=== PATIENT | female | born 1980 | race American Indian/Alaskan Native ===

== ENCOUNTER 2016-12-01 16:20 | Inpatient (IN) | payer OTHER ==
--- NOTE | 2016-12-01 17:06 | Emergency Department Report ---
Chief Complaint: Dyspnea/Respdistress Stated Complaint: SOB,CHEST PAIN Time Seen by Provider: 12/01/16 17:02 - HPI History of Present Illness: PT sttes her eyes were red at work and the nurses at work checked her blood pressure and it was 127/96. PT states she was told her bp was abnormal and she called her PCP. PT states she was advised to go to ED or UC. PT states she was seen at UC And sent to the ED due to having more symptoms over the weekend. - ROS Review of Systems: + chest pain + sob + ohara + nose bleed - Exam Vital Signs: Vital Signs 12/01/16 16:50 Temperature 98.2 F Pulse Rate 75 Respiratory 18 Rate Blood Pressure 128/73 O2 Sat by Pulse 100 Oximetry Physical Exam: PT is alert and appropriate gcs 15 + photophobia, conjunctiva wnl MSE screening note: Focused history and physical exam performed. Due to findings the following was ordered: rn placed orders ED Disposition for MSE Condition: Stable
--- NOTE | 2016-12-01 17:31 | Cat Scan Report ---
FINAL REPORT EXAM: CT HEAD/BRAIN WO CON HISTORY: neuro deficits \T\lt; 6hrs or sx present upon awakening TECHNIQUE: Standard unenhanced CT of the head at 5.0 millimeter axial increments PRIORS: None. FINDINGS: The ventricular system is normal in size and configuration. There is no evidence for parenchymal volume loss. There is no evidence for mass lesion, mass effect, midline shift, acute intracranial hemorrhage, or acute ischemia/ infarction. Visualized paranasal sinuses are clear. IMPRESSION: Negative CT of the head. No acute intracranial process noted.
[2016-12-02 05:06] LABS: Anion Gap 16 mmol/L; Blood Urea Nitrogen 8 mg/dL (7-17); Calcium 9.4 mg/dL (8.4-10.2); Carbon Dioxide 26 mmol/L (22-30); Glucose 91 mg/dL (65-100); Potassium 3.5 mmol/L (3.6-5.0); Sodium 137 mmol/L (137-145)
[2016-12-02 05:11] LABS: Basophils % (Auto) 1.4 % (0.0-1.8); Eosinophils % (Auto) 0.7 % (0.0-4.3); Hematocrit 35.8 % (30.3-42.9); Hemoglobin 12.2 gm/dl (10.1-14.3); Mean Corpuscular HGB Conc 34 % (30-34); Mean Corpuscular Hemoglobin 33 pg (28-32); Mean Corpuscular Volume 96 fl (79-97); Platelet Count 163 K/mm3 (140-440); Red Blood Count 3.74 M/mm3 (3.65-5.03); Red Cell Distribution Width 14.1 % (13.2-15.2); White Blood Count 3.3 K/mm3 (4.5-11.0)
[2016-12-02 05:21] LABS: INR 1.09 (0.87-1.13); Partial Thromboplastin Time 29.5 Sec. (24.2-36.6)
[2016-12-02] MEDS ORDERED: ZOFRAN IV ONE (06:52)
[2016-12-02] MEDS ORDERED: ASPIRIN PO ONE (06:52)
[2016-12-02] MEDS ORDERED: NITRO-BID 2% TP ONE (06:52)
[2016-12-02] MEDS ORDERED: MORPHINE IV ONE (06:52)
--- NOTE | 2016-12-02 06:57 | Emergency Department Report ---
HPI - General Chief Complaint: Dyspnea/Respdistress Time Seen by Provider: 12/01/16 17:02 - [facility] HPI: Room 6 The patient is a 36-year-old female presenting with a chief complaint of chest pain headache. The patient states approximately 5 days ago she developed a frontal and occipital headache in addition to substernal chest pain. The patient describes chest pain as sharp and stabbing in nature. Patient states the pain has been intermittent and associated with shortness of breath. The patient admits to dyspnea on exertion and orthopnea. Patient denies a history of cough or fever. The patient states she contacted her primary physician who in turn instructed her to come to the hospital for care. The patient went to an urgent care facility then was sent to the ED for a CAT scan. The patient states she's never had a stress test or cardiac catheterization Location: Head, chest Duration: [see above] Quality: Sharp Severity: Moderate Modifying factors: [see above] Context: [see above] Mode of transportation: The patient drove herself to the emergency department but agrees to be admitted to the hospital ED Past Medical Hx - Past Medical History Previous Medical History?: Yes Hx Headaches / Migraines: Yes Additional medical history: Lupus, Nosebleed - Surgical History Past Surgical History?: Yes Additional Surgical History: Breast reduction - Family History Family history: no significant - Social History Smoking Status: Current Every Day Smoker (one cigar daily) Substance Use Type: None (denies illicit drug use), Alcohol (occasional) - Medications Home Medications: Home Medications Medication Instructions Recorded Confirmed Last Taken Type HYDROcodone/APAP 5-325 [Breeden 1 each PO Q6HR PRN #14 tablet 09/17/13 Unknown Rx 5/325 mg] Acetaminophen/Codeine 1 tab PO Q6H PRN #10 tab 04/17/14 Unknown Rx [Acetaminophen-Codeine #3 TAB] Ondansetron [Zofran Odt] 4 mg PO Q6H #10 tab.rapdis 04/17/14 Unknown Rx ED Review of Systems ROS: Stated complaint: SOB,CHEST PAIN Other details as noted in HPI Comment: All other systems reviewed and negative Constitutional: denies: chills, fever Eyes: denies: eye pain, eye discharge, vision change ENT: denies: ear pain, throat pain Respiratory: orthopnea, shortness of breath, SOB with exertion Cardiovascular: chest pain, dyspnea on exertion Endocrine: no symptoms reported Gastrointestinal: denies: abdominal pain, nausea, diarrhea Genitourinary: denies: urgency, dysuria, discharge Musculoskeletal: denies: back pain, joint swelling, arthralgia Skin: denies: rash, lesions Neurological: headache Psychiatric: denies: anxiety, depression Hematological/Lymphatic: denies: easy bleeding, easy bruising Physical Exam - Physical Exam Vital Signs: Vital Signs 12/01/16 12/02/16 12/02/16 16:50 00:25 03:27 Temperature 98.2 F 98.6 F Pulse Rate 75 85 74 Respiratory 18 18 8 L Rate Blood Pressure 128/73 120/79 Blood Pressure 125/86 [Right] O2 Sat by Pulse 100 100 100 Oximetry Physical Exam: GENERAL: The patient is well-developed well-nourished female lying on stretcher not appearing to be in acute distress. Last is in place HEENT: Normocephalic. Atraumatic. Extraocular motions are intact. Patient has moist mucous membranes. NECK: Supple. No meningitic signs are noted. Trachea midline CHEST/LUNGS: Clear to auscultation. There is no respiratory distress noted. HEART/CARDIOVASCULAR: Regular. There is no tachycardia. There is no gallop rub or murmur. ABDOMEN: Abdomen is soft, nontender. Patient has normal bowel sounds. There is no abdominal distention. SKIN: There is no diaphoresis. NEURO: The patient is awake, alert, and oriented. The patient is cooperative. The patient has no focal neurologic deficits. The patient has normal speech. Cranial nerves II through XII grossly intact, no drift MUSCULOSKELETAL: There is no evidence of acute injury. ED Course Vital Signs 12/01/16 12/02/16 12/02/16 16:50 00:25 03:27 Temperature 98.2 F 98.6 F Pulse Rate 75 85 74 Respiratory 18 18 8 L Rate Blood Pressure 128/73 120/79 Blood Pressure 125/86 [Right] O2 Sat by Pulse 100 100 100 Oximetry ED Medical Decision Making - Lab Data Result diagrams: 12/02/16 04:29 12/02/16 04:29 Laboratory Tests 12/02/16 12/02/16 12/02/16 04:29 04:29 04:29 WBC 3.3 L RBC 3.74 Hgb 12.2 Hct 35.8 MCV 96 MCH 33 H MCHC 34 RDW 14.1 Plt Count 163 Lymph % (Auto) 38.6 H [place] % (Auto) 9.4 H Eos % (Auto) 0.7 Baso % (Auto) 1.4 Lymph # 1.3 [place] # 0.3 Eos # 0.0 Baso # 0.0 Seg Neutrophils % 49.9 Seg Neutrophils # 1.6 L PT 14.0 INR 1.09 APTT 29.5 Thrombin Time D-Dimer Sodium 137 Potassium 3.5 L Chloride 99.0 Carbon Dioxide 26 Anion Gap 16 BUN 8 Creatinine 0.5 L Estimated GFR > 60 BUN/Creatinine Ratio 16.00 Glucose 91 Calcium 9.4 Troponin T < 0.010 12/02/16 12/02/16 04:29 04:29 WBC RBC Hgb Hct MCV MCH MCHC RDW Plt Count Lymph % (Auto) [place] % (Auto) Eos % (Auto) Baso % (Auto) Lymph # [place] # Eos # Baso # Seg Neutrophils % Seg Neutrophils # PT INR APTT Thrombin Time 17.1 D-Dimer 142.86 Sodium Potassium Chloride Carbon Dioxide Anion Gap BUN Creatinine Estimated GFR BUN/Creatinine Ratio Glucose Calcium Troponin T - EKG Data -: EKG Interpreted by Me EKG shows normal: sinus rhythm Rate: normal - EKG Data When compared to previous EKG there are: previous EKG unavailable Interpretation: normal EKG (no ischemic changes seen) - Radiology Data Radiology results: report reviewed (CT head), image reviewed (CT head, chest x- ray) interpreted by me: Chest x-ray-no focal infiltrates, no pneumothorax CT head (read by radiologist)-no acute abnormalities - Differential Diagnosis migraine, ICH, ACS, PE, pericarditis, GERD Critical care attestation.: If time is entered above; I have spent that time in minutes in the direct care of this critically ill patient, excluding procedure time. ED Disposition Clinical Impression: Chest pain, Headache Disposition: OP ADMIT IP TO THIS HOSP Is pt being admited?: Yes Does the pt Need Aspirin: Yes Condition: Fair Instructions: Chest Pain (ED) Referrals: [facility] DR BRANHAM [Other] - 3-5 Days Time of Disposition: 07:20 (hospitalist paged)
--- NOTE | 2016-12-02 07:39 | XRay Report ---
ROUTINE CHEST, TWO VIEWS: HISTORY: chest pain. The trachea, heart, mediastinal contour, lung farmer and bony thorax are unremarkable. IMPRESSION: Unremarkable chest x-ray.
--- NOTE | 2016-12-02 07:57 | Admit Criteria Form ---
Admission Criteria Documentation: CARDIOLOGY GRG Clinical Indications for Admission to Inpatient Care ( Place 'X' for any and all applicable criteria): Hospital admission is needed for appropriate care of the patient because of ANY ONE of the following (1): [ ] I. Hemodynamic instability as indicated by ALL of the following (1)(2)(3) (4)(5) [ ]a) Vital signs or other findings not as expected for chronic patient condition or baseline [ ]b) Instability indicated by ANY ONE of the following: [ ]i) Hypotension [ ]ii) Symptomatic Tachycardia unresponsive to treatment ( e.g., analgesia, fluids, sedation as indicated) [ ]iii) Inadequate perfusion indicated by ANY ONE of the following: [ ] 1) Lactic acidosis (> 2 mmol/L) [ ] 2) New abnormal capillary refill (> 3 seconds) [ ] 3) Reduced urine output [ ] 4) New altered mental status [ ]iv) Orthostatic vital sign changes unresponsive to treatment (e.g., fluids) [ ]v) IV inotropic or vasopressor medication required to maintain adequate blood pressure or perfusion [ ] II. Severe heart failure as indicated by ANY ONE of the following(17)(18) [ ]a) Respiratory distress [ ]b) Hypotension [ ]c) Anasarca (refractory to outpatient therapy) [ ]d) Cardiac arrhythmias of immediate concern [ ]e) Myocardial ischemia [ ] III. Cardiac arrhythmias or findings of immediate concern indicated by ANY ONE of the following (19)(20): [ ] a) Heart rhythms that are inherently dangerous or unstable indicated by ANY ONE of the following (21)(22)(23): [ ] i) Resuscitated ventricular fibrillation or cardiac arrest [ ] ii) Ventricular escape rhythm [ ] iii) Sustained ventricular tachycardia (30 seconds or more of ventricular rhythm at greater than 100 beats per minute) [ ] iv) Nonsustained ventricular tachycardia and ANY ONE of the following: [ ] 1) Suspected cardiac ischemia as cause or consequence of ventricular tachycardia [ ] 2) In setting of acute myocarditis [ ] b) Unstable cardiac conduction defects indicated by ANY ONE of the following(23)(24)(25) [ ] i) Type II second-degree atrioventricular block [ ]ii) Third-degree atrioventricular block [ ]iii) New-onset left bundle branch block with suspected myocardial ischemia [ ]c) Any heart rhythm and ANY ONE of the following (21)(22)(26)(27) (28) [ ] i) Continuous long-term ECG monitoring needed (e.g., initiation of drug requiring monitoring for more than 24 hours) [ ] ii) Patient has automatic implanted cardioverter defibrillator that is repeatedly firing, malfunctioning, or in need of immediate adjustment of settings beyond the scope of ambulatory or observation care [ ]d) Heart rhythms of concern due to ANY ONE of the following: [ ] i) Hypotension [ ] ii) Respiratory distress [ ] iii) Association with other significant symptoms (e.g., bradycardia with syncope or ongoing dizziness, supraventricular tachycardia with chest pain (14)(15)(17) [ ] IV. Monitoring for cardiac contusion beyond the scope of observation care needed [A](30)(31)(32) [ ] V. Surgical or device complication (e.g., valve replacement complication , pacemaker dysfunction) (35)(41)(44)(45)(46) [ ] . Inpatient palliative care needed. [B](49) Also use Inpatient Palliative Care Criteria [ ] VII. Nonbacterial thrombotic (marantic) endocarditis (36)(43)(47)(48) [X] VIII. Cardiology condition, symptom, or finding for which emergency and observation care has failed or are not considered appropriate. [ ] IX. Acute valvular disease requiring inpatient as indicated by ANY ONE of the following (41) [ ]a) Acute valvular regurgitation (42) [ ]b) Noninfectious valvulitis (43) [ ]c) Obstructive valve thrombosis [ ]d) Paravalvular leak [ ]e) Other significant valvular disorder remaining after emergency or observation level of care (as appropriate) [ ]X. Pericardial disease requiring inpatient treatment as indicated by ANY ONE of the following (33)(34)(35)(36)(37) [ ]a) Suspected tamponade (38)(39)(40) [ ]b) Hemopericardium [ ]c) Other significant pericardial disorder remaining after emergency or observation level of care (as appropriate) [ ] XI. Cardiac ischemia beyond scope of emergency and observation care. [ ] XII. Hypertension requiring inpatient treatment as indicated by ANY ONE of the following (6)(7)(8) [ ]a) SBP greater than 220 mm Hg or DBP greater than 120 mmHg despite treatment [ ]b) SBP greater than 140 mm Hg or DBP greater than 100 mm Hg with evidence of acute end organ damage as indicated by ANY ONE of the following [ ] i) Altered mental status [ ] ii) Acute renal failure as indicated by new onset of ANY ONE of the following (9)(10)(11)(12)(13) [ ]1) 3-fold rise in serum creatinine from baseline [ ]2) Serum creatinine greater than 4 mg/dL ( 354 micromoles/L) with acute rise greater than 0.5 mg/dL (44.2 micromoles/L) [ ]3) Reduction of more than 75% in estimated glomerular filtration rate from baseline [ ]4) Estimated glomerular filtration rate less than 35 mL/min/1.73m2 (0.59 mL/sec/1.73m2) in child up to 18 years of age [ ]5) Cessation of urine output indicated by ALL of the following [ ]A. Adequate volume status [ ]B. Inadequate urine output as indicated by ANY ONE of the following [ ]a. Urine output less than 0.3 mL/kg/hr for 24 hours [ ]b. Anuria (urine output less than 0.1 mL/kg/hr) for 12 hours [ ] iii) Aortic dissection [ ] iv) Myocardial Ischemia [ ] v) Left ventricular heart failure [ ]vi) Retinal Hemorrhage [ ]vii) Other significant finding [ ]c) Hypertension in child requiring inpatient treatment as indicated by ALL of the following(14)(15)(16) [ ] i) Outpatient treatment not effective, not available, or not appropriate [ ]ii) SBP or DBP greater than 95th percentile for age [ ]iii) Evidence of acute end organ damage as indicated by ANY ONE of the following [ ]1) Altered mental status [ ]2) Acute renal failure as indicated by new onset of ANY ONE of the following(9)(10)(11)(12)(13) [ ]A. 3-fold rise in serum creatinine from baseline [ ]B. Serum creatinine greater than 4 mg/dL (354 micromoles/L) with acute rise greater than 0.5 mg/dL (44.2 micromoles/L) [ ]C. Reduction of more than 75% in estimated glomerular filtration rate from baseline [ ]D. Estimated glomerular filtration rate less than 35 mL/min/1.73m2 (0.59 mL/sec/1.73m2) in child up to 18 years of age [ ]E. Cessation of urine output indicated by ALL of the following [ ]a. Adequate volume status [ ]b. Inadequate urine output as indicated by ANY ONE of the following [ ]i) Urine output less than 0.3 mL/kg/hr for 24 hours [ ]ii) Anuria ( urine output less than 0.1 mL/kg/hr) for 12 hours [ ]3) Severe headache [ ]4) Visual disturbance [ ]5) Retinal hemorrhage [ ]6) Other significant finding [ ]XIII. Complications of transplanted heart indicated by ANY ONE of the following(61): [ ]a) Acute graft rejection requiring inpatient management (eg, intravenous immunosuppression)(62)(63) [ ]b) Acute graft heart failure indicated by ANY ONE of the following(64): [ ]i) Hemodynamic instability [ ]ii) Cardiac arrhythmias of immediate concern [ ]iii) Pulmonary edema that is very severe (eg, mechanical ventilation needed, imminent or likely, need for 100% oxygen to keep oxygen saturation above 90%) [ ]iv) Pulmonary edema that is persistent as indicated by ALL of the following: [ ]1) New need for oxygen therapy to keep oxygen saturation above 90% (or increased FiO2 need from baseline) [ ]2) Has not improved sufficiently with emergency department or observation care IV diuretics or other heart failure treatments[E] [ ]v) Altered mental status that is severe or persistent [ ]vi) Increased creatinine (new on laboratory test) with reduction of more than 50% in estimated glomerular filtration rate from baseline [ ]vii) Progressively (ongoing) rising creatinine (known from past laboratory test) with reduction of more than 25% in estimated glomerular filtration rate from baseline [ ]viii) Acute renal failure [ ]ix) Acute peripheral ischemia (eg, examination shows pulseless, cool, mottled, or cyanotic extremity) [ ]x) Pulmonary artery catheter monitoring needed [ ]xi) Other sign or symptom of heart failure requiring inpatient treatment (ie, too severe or not responsive to outpatient and observation care treatment) [ ]c) Infection requiring inpatient management (eg, Hemodynamic instability, need for intravenous antimicrobial treatment)(66)(67)(68)(69)(70) [ ]d) Cardiac allograft vasculopathy requiring inpatient management ( eg evidence of cardiac ischemia)(71) [ ]e) Other complication of transplanted heart (eg, stroke, severe pulmonary hypertension, severe valvular dysfunction) requiring inpatient management(72) The original [facility] [employer] content created by [employer] has been revised. The portions of the content which have been revised are identified through the use of italic text or in bold, and [facility] has neither reviewed nor approved the modified material. All other unmodified content is copyright [facility] [employer]. Please see references footnoted in the original [facility] [employer] edition 2016 Admission Criteria Met: Yes
[2016-12-02] MEDS ORDERED: TYLENOL PO PRN (08:03)
[2016-12-02] MEDS ORDERED: ZOFRAN IV PRN (08:03)
[2016-12-02] MEDS ORDERED: DULCOLAX PR PRN (08:03)
[2016-12-02] MEDS ORDERED: MORPHINE IV PRN (08:09)
--- NOTE | 2016-12-02 08:10 | History and Physical Report ---
<AARON BARNEY - Last Filed: 12/02/16 14:04> History of Present Illness Date of examination: 12/02/16 Date of admission: 12/02/2016 Chief complaint: Headaches and chest pain History of present illness: Patient is a 36-year-old -Monegas[place] female with past medical history of lupus who presenting with a chief complaint of chest pain and headache. patient The patient states approximately 4-5 days ago she developed chest pain and a frontal and occipital headache. She describe the pain is substernal and she also feels it under the left side of her chest in the midclavicular region; She describes the quality as a chest tightness/stabbing and radiated to her back. It has been a constant pain since it Thursday (11/29/16) evening. At first, she felt a stabbing pain that was 9/10 but eventually it became more crampy and is crampy and is currently 1/10 in the ED after SL Nitro x 2 and ASA (325 mg) and Morphine 2mg. There is no exacerbating or relieving factors. Her discomfort was accompanied by shortness of breath, dizziness, lightheadedness but denies sweating, nausea, or vomiting. Patient denies a history of cough or fever. The patient states she contacted her primary physician who in turn instructed her to come to the hospital for care. The patient went to an urgent care facility then was sent to the ED for a CAT scan. Past History Past Medical History: other (Lupus) Past Surgical History: No surgical history Social history: no significant social history, lives with family Family history: CAD, hypertension Medications and Allergies Allergies Allergy/AdvReac Type Severity Reaction Status Date / Time No Known Allergies Allergy Verified 12/02/16 08:11 Home Medications Medication Instructions Recorded Confirmed Last Taken Type Famotidine [Pepcid] 20 mg PO DAILY #30 tablet 12/02/16 Unknown Rx predniSONE [Deltasone] 20 mg PO QDAY #10 tab 12/02/16 Unknown Rx traMADol [Ultram] 50 mg PO Q6HR PRN #30 tablet 12/02/16 Unknown Rx Active Meds: Active Medications Acetaminophen (Tylenol) 650 mg PO Q4H PRN PRN Reason: Pain MILD(1-3)/Fever >100.5/ORR Bisacodyl (Dulcolax) 10 mg VT QDAY PRN PRN Reason: Constipation unrelieved by MOM Enoxaparin Sodium (Lovenox) 40 mg SUB-Q QDAY [facility] Morphine Sulfate (Morphine) 2 mg IV Q4H PRN PRN Reason: Pain, Moderate (4-6) Ondansetron HCl (Zofran) 4 mg IV Q4H PRN PRN Reason: N/V unrelieved by Reglan Review of Systems Constitutional: no weight loss, no weight gain, no fever, no chills, no sweats, no night sweats Ears, nose, mouth and throat: no ear pain, no ear discharge, no tinnitis, no decreased hearing Breasts: no normal, no change in shape, no swelling Cardiovascular: chest pain, orthopnea, lightheadedness, shortness of breath, no palpitations, no rapid/irregular heart beat, no edema, no syncope Respiratory: no cough, no cough with sputum, no excessive sputum Gastrointestinal: no nausea, no vomiting, no diarrhea Genitourinary Female: no dysmenorrhea, no pelvic pain, no menorrhagia, no dysuria, no urinary frequency, no urgency Menstruation: no currently menstrual, no premenarcheal, no post hysterectomy, no ammenorrhea, no ammenorrhea on BC Rectal: no incontinence, no bleeding Musculoskeletal: no neck stiffness, no neck pain, no shooting arm pain Integumentary: no rash, no pruritis Neurological: no head injury, no transient paralysis, no paralysis, no weakness , no parathesias Psychiatric: no anxiety, no memory loss, no change in sleep habits, no sleep disturbances Endocrine: no cold intolerance, no heat intolerance, no polyphagia, no excessive thirst Hematologic/Lymphatic: no easy bruising, no easy bleeding Allergic/Immunologic: no urticaria, no allergic rhinitis Exam - Constitutional Vitals: Temp Pulse Resp BP Pulse Ox 98.6 F 75 22 106/68 100 12/02/16 00:25 12/02/16 07:57 12/02/16 07:30 12/02/16 07:55 12/02/16 07:00 General appearance: Present: no acute distress - EENT Eyes: Present: PERRL ENT: hearing intact - Neck Neck: Present: supple - Respiratory Respiratory effort: normal Respiratory: bilateral: CTA - Extremities Extremities: no ischemia Peripheral Pulses: within normal limits - Abdominal General gastrointestinal: Present: soft, non-tender Female genitourinary: Present: normal - Rectal Rectal Exam: deferred - Integumentary Integumentary: Present: clear, warm, dry - Musculoskeletal Musculoskeletal: strength equal bilaterally - Psychiatric Psychiatric: appropriate mood/affect - Neurologic Neurologic: CNII-XII intact - Allied Health Allied health notes reviewed: nursing Results - Labs CBC & Chem 7: 12/02/16 04:29 12/02/16 04:29 Labs: Laboratory Last Values WBC 3.3 K/mm3 (4.5-11.0) L 12/02/16 04:29 RBC 3.74 M/mm3 (3.65-5.03) 12/02/16 04:29 Hgb 12.2 gm/dl (10.1-14.3) 12/02/16 04:29 Hct 35.8 % (30.3-42.9) 12/02/16 04:29 MCV 96 fl (79-97) 12/02/16 04:29 MCH 33 pg (28-32) H 12/02/16 04:29 MCHC 34 % (30-34) 12/02/16 04:29 RDW 14.1 % (13.2-15.2) 12/02/16 04:29 Plt Count 163 K/mm3 (140-440) 12/02/16 04:29 Lymph % (Auto) 38.6 % (13.4-35.0) H 12/02/16 04:29 [place] % (Auto) 9.4 % (0.0-7.3) H 12/02/16 04:29 Eos % (Auto) 0.7 % (0.0-4.3) 12/02/16 04:29 Baso % (Auto) 1.4 % (0.0-1.8) 12/02/16 04:29 Lymph # 1.3 K/mm3 (1.2-5.4) 12/02/16 04:29 [place] # 0.3 K/mm3 (0.0-0.8) 12/02/16 04:29 Eos # 0.0 K/mm3 (0.0-0.4) 12/02/16 04:29 Baso # 0.0 K/mm3 (0.0-0.1) 12/02/16 04:29 Seg Neutrophils % 49.9 % (40.0-70.0) 12/02/16 04:29 Seg Neutrophils # 1.6 K/mm3 (1.8-7.7) L 12/02/16 04:29 PT 14.0 Sec. (12.2-14.9) 12/02/16 04:29 INR 1.09 (0.87-1.13) 12/02/16 04:29 APTT 29.5 Sec. (24.2-36.6) 12/02/16 04:29 Thrombin Time 17.1 Sec. (15.1-19.6) 12/02/16 04:29 D-Dimer 142.86 ng/mlDDU (0-234) 12/02/16 04:29 Sodium 137 mmol/L (137-145) 12/02/16 04:29 Potassium 3.5 mmol/L (3.6-5.0) L 12/02/16 04:29 Chloride 99.0 mmol/L (98-107) 12/02/16 04:29 Carbon Dioxide 26 mmol/L (22-30) 12/02/16 04:29 Anion Gap 16 mmol/L 12/02/16 04:29 BUN 8 mg/dL (7-17) 12/02/16 04:29 Creatinine 0.5 mg/dL (0.7-1.2) L 12/02/16 04:29 Estimated GFR > 60 ml/min 12/02/16 04:29 BUN/Creatinine Ratio 16.00 % 12/02/16 04:29 Glucose 91 mg/dL (65-100) 12/02/16 04:29 Calcium 9.4 mg/dL (8.4-10.2) 12/02/16 04:29 Troponin T < 0.010 ng/mL (0.00-0.029) 12/02/16 04:29 Assessment and Plan Assessment and plan: Patient is a 36-year-old -[place]onegas[place] female with past medical history of lupus who presenting with a chief complaint of chest pain and headache. patient The patient states approximately 4-5 days ago she developed chest pain and a frontal and occipital headache. normal EKG (no ischemic changes seen) Chest x-ray-no focal infiltrates, no pneumothorax, CT head no acute abnormalities. ASSESSMENT/PLAN Chest pain We will admit to telemetry floor 12-lead EKG obtained we will also get another EKG in order for any changes that have taken since the first obtained We will do cardiac enzymes and follow cardiac enzyme troponin IV fluid hydration Stress test ordered Headache CT of the head shows no acute intracranial process Pain control with morphine Lupus We will resume home by mouth steroid pill Discussed the patient to follow up with her primary provider as outpatient. DVT prophylaxis Lovenox <KATY ALMENDAREZ - Last Filed: 12/07/16 07:56> History of Present Illness Date of admission: 12/02/16 08:03 Medications and Allergies Active Meds: Active Medications Enoxaparin Sodium (Lovenox) 40 mg SUB-Q QDAY@2200 [facility] Exam - Constitutional Vitals: Temp Pulse Resp BP Pulse Ox 98.6 F 61 17 101/67 100 12/02/16 00:25 12/02/16 11:30 12/02/16 11:30 12/02/16 11:30 12/02/16 11:30 Results - Labs CBC & Chem 7: 12/02/16 04:29 12/02/16 04:29 Labs: Laboratory Last Values WBC 3.3 K/mm3 (4.5-11.0) L 12/02/16 04:29 RBC 3.74 M/mm3 (3.65-5.03) 12/02/16 04:29 Hgb 12.2 gm/dl (10.1-14.3) 12/02/16 04:29 Hct 35.8 % (30.3-42.9) 12/02/16 04:29 MCV 96 fl (79-97) 12/02/16 04:29 MCH 33 pg (28-32) H 12/02/16 04:29 MCHC 34 % (30-34) 12/02/16 04:29 RDW 14.1 % (13.2-15.2) 12/02/16 04:29 Plt Count 163 K/mm3 (140-440) 12/02/16 04:29 Lymph % (Auto) 38.6 % (13.4-35.0) H 12/02/16 04:29 [place] % (Auto) 9.4 % (0.0-7.3) H 12/02/16 04:29 Eos % (Auto) 0.7 % (0.0-4.3) 12/02/16 04:29 Baso % (Auto) 1.4 % (0.0-1.8) 12/02/16 04:29 Lymph # 1.3 K/mm3 (1.2-5.4) 12/02/16 04:29 [place] # 0.3 K/mm3 (0.0-0.8) 12/02/16 04:29 Eos # 0.0 K/mm3 (0.0-0.4) 12/02/16 04:29 Baso # 0.0 K/mm3 (0.0-0.1) 12/02/16 04:29 Seg Neutrophils % 49.9 % (40.0-70.0) 12/02/16 04:29 Seg Neutrophils # 1.6 K/mm3 (1.8-7.7) L 12/02/16 04:29 PT 14.0 Sec. (12.2-14.9) 12/02/16 04:29 INR 1.09 (0.87-1.13) 12/02/16 04:29 APTT 29.5 Sec. (24.2-36.6) 12/02/16 04:29 Thrombin Time 17.1 Sec. (15.1-19.6) 12/02/16 04:29 D-Dimer 142.86 ng/mlDDU (0-234) 12/02/16 04:29 Sodium 137 mmol/L (137-145) 12/02/16 04:29 Potassium 3.5 mmol/L (3.6-5.0) L 12/02/16 04:29 Chloride 99.0 mmol/L (98-107) 12/02/16 04:29 Carbon Dioxide 26 mmol/L (22-30) 12/02/16 04:29 Anion Gap 16 mmol/L 12/02/16 04:29 BUN 8 mg/dL (7-17) 12/02/16 04:29 Creatinine 0.5 mg/dL (0.7-1.2) L 12/02/16 04:29 Estimated GFR > 60 ml/min 12/02/16 04:29 BUN/Creatinine Ratio 16.00 % 12/02/16 04:29 Glucose 91 mg/dL (65-100) 07/18/17 04:29 Calcium 9.4 mg/dL (8.4-10.2) 12/02/16 04:29 Troponin T < 0.010 ng/mL (0.00-0.029) 12/02/16 04:29 Assessment and Plan Assessment and plan: I saw and evaluated the patient. I agree with the findings and the plan of care as documented in the Nurse Practitioner's~note, with the following corrections and additions. PATIENT Reports symptoms started a few days ago with generalized body pain, then headache with blurry vision which resolved, she was seen at the urgent care after she called her doctors office and was sent to the hospital for further evaluation. patient is for a stress test this am. Chest pain secondary to costochondritis. Advance Directives: Yes Plan of care discussed with patient/family: Yes
[2016-12-02] MEDS ORDERED: LEXISCAN IV ONE (09:43)
[2016-12-02] MEDS ORDERED: LOVENOX SUB-Q SCH ×2 (10:00→22:00)
--- NOTE | 2016-12-02 11:42 | Discharge Summary ---
Providers - Providers Date of Admission: 12/02/16 08:03 Date of discharge: 12/02/16 Attending physician: KATY ALMENDAREZ MD Hospitalization Condition: Fair Disposition: DC-01 TO HOME OR SELFCARE Exam - Constitutional Vitals: Temp Pulse Resp BP Pulse Ox 98.6 F 60 17 102/65 100 12/02/16 00:25 12/02/16 11:00 12/02/16 11:00 12/02/16 11:00 12/02/16 11:00 Plan Activity: advance as tolerated, fall precautions Diet: regular Additional Instructions: Follow with Rhumatologist of PCP choice for Lupus management Follow up with: [facility],MED[facility] DR BRANHAM [Other] - 3-5 Days Prescriptions: Famotidine [Pepcid] 20 mg PO DAILY #30 tablet predniSONE [Deltasone] 20 mg PO QDAY #10 tab traMADol [Ultram] 50 mg PO Q6HR PRN #30 tablet PRN Reason: Pain
[2016-12-02 12:01] VITALS: BP 101/67
--- NOTE | 2016-12-02 13:20 | Event Note ---
Date: 12/02/16 Stress MPI: 1. Negative for ischemia. 2. EF 65%. Nasir GILES NP / DR. LEVY
--- NOTE | 2016-12-02 14:14 | Discharge Summary ---
<AARON BARNEY - Last Filed: 12/02/16 14:16> Providers - Providers Date of Admission: 12/02/16 08:03 Date of discharge: 12/02/16 Attending physician: KATY ALMENDAREZ MD Hospitalization Condition: Fair Hospital course: Patient is a 36-year-old -[place] female with past medical history of lupus who presenting with a chief complaint of chest pain and headache. patient The patient states approximately 4-5 days ago she developed chest pain and a frontal and occipital headache. Patient was diagnosed with chest pain and frontal and occipital headache. Patient presented with atypical chest pain, ACS was ruled out, negative cardiac enzymes, ECGs shows normal sinus rythm, CXR was wnl and CTA with no risk for pulmonary embolism or TIA. Patient chest pain probably from musculoskeletal. She was treated with IV fluid hydration and NTG and ASA was given for ACS prophylaxis. Patient is clinically improved and stable for discharge. Patient advised to follow-up with her primary care provider for her Lupus. Disposition: - TO HOME OR SELFCARE - Discharge Diagnoses (1) Chest pain Status: Acute QualifierTitle: Chest pain type: C Ischemic chest pain type: I (2) Headache Status: Acute QualifierTitle: Headache type: H Headache chronicity pattern: H Intractability: I (3) Lupus Status: Chronic QualifierTitle: Systemic lupus erythematosus type: S Systemic lupus erythematosus organ involvement: S Core Measure Documentation - Palliative Care Palliative Care/ Comfort Measures: Not Applicable - Core Measures Any of the following diagnoses?: none Exam - Constitutional Vitals: Temp Pulse Resp BP Pulse Ox 98.6 F 61 17 101/67 100 12/02/16 00:25 12/02/16 11:30 12/02/16 11:30 12/02/16 11:30 12/02/16 11:30 General appearance: Present: no acute distress - EENT Eyes: Present: PERRL ENT: hearing intact - Neck Neck: Present: supple - Respiratory Respiratory effort: normal Respiratory: bilateral: CTA - Cardiovascular Heart rate: 61 Rhythm: regular Heart Sounds: Present: S1 & S2 - Extremities Extremities: no ischemia Peripheral Pulses: within normal limits - Abdominal General gastrointestinal: Present: soft, non-tender Female genitourinary: Present: deferred - Rectal Rectal Exam: deferred - Integumentary Integumentary: Present: clear, warm, dry - Musculoskeletal Musculoskeletal: strength equal bilaterally - Psychiatric Psychiatric: appropriate mood/affect - Allied Health Allied health notes reviewed: nursing Plan Activity: no restrictions Weight Bearing Status: Weight Bear as Tolerated Diet: low fat Follow up with: [facility],MED[facility] DR BRANHAM [Other] - 3-5 Days Forms: Work/School Release Form(ED) Prescriptions: Famotidine [Pepcid] 20 mg PO DAILY #30 tablet predniSONE [Deltasone] 20 mg PO QDAY #10 tab traMADol [Ultram] 50 mg PO Q6HR PRN #30 tablet PRN Reason: Pain <KATY ALMENDAREZ - Last Filed: 12/07/16 07:58> Providers - Providers Date of Admission: 12/02/16 08:03 Attending physician: KATY ALMENDAREZ MD Hospitalization Reason for admission: chest pain Hospital course: I saw and evaluated the patient. I agree with the findings and the plan of care as documented in the Nurse Practitioner's~note, with the following corrections and additions. she is also to follow with [facility] and PCP can advise. Time spent for discharge: 35 mins Exam - Constitutional Vitals: Temp Pulse Resp BP Pulse Ox 98.6 F 61 17 101/67 100 12/02/16 00:25 12/02/16 11:30 12/02/16 11:30 12/02/16 11:30 12/02/16 11:30
== END 2016-12-02 12:03 | disposition home or self-care (01) | DRG 313 ==
LOC: ED 16:20 → 4A 12-02 08:03
PROVIDERS: ADMIT Internal Medicine; ATTEND Internal Medicine
DX: R07.89 Other chest pain (principal); M32.9 Systemic lupus erythematosus, unspecified; G43.909 Migraine, unspecified, not intractable, without status migrainosus; F17.200 Nicotine dependence, unspecified, uncomplicated; Z72.89 Other problems related to lifestyle; Z82.49 Family history of ischemic heart disease and other diseases of the circulatory system
CPT/HCPCS: 36415; 70450; 71020; 78452; 80048; 84484; 85025; 85379; 85610; 85670; 85730; 93005; 93010; 93017; A9502; J2270; J2405; J2785